=== PATIENT | male | born 1980 | race African-American/Black ===

== ENCOUNTER 2017-11-22 10:46 | Emergency (ER) | payer SELFPAY ==
[~2017-11-22] VITALS: Ht 177.8 cm; Wt 104.0 kg
[2017-11-22 11:07] VITALS: BP 172/100
== END 2017-11-22 16:18 | disposition left against medical advice (07) ==
LOC: ER 12:16
DX: J02.9 Acute pharyngitis, unspecified (principal); Z53.21 Procedure and treatment not carried out due to patient leaving prior to being seen by health care provider

== ENCOUNTER 2022-03-01 23:49 | Emergency (ER) | payer OTHER, MEDICAID ==
[~2022-03-01] VITALS: Ht 177.8 cm; Wt 111.0 kg
[2022-03-02 02:32] VITALS: BP 187/110
[2022-03-02 02:42] LABS: BASOPHILS % 0.4 % (0.0-2.0); EOSINOPHILS % 0.8 % (0.0-5.0); HEMATOCRIT. 45.7 % (42.0-52.0); HEMOGLOBIN. 15.8 g/dL (14.0-18.0); LYMPHOCYTES % 21.5 % (20.0-50.0); MEAN CORPUSCULAR HEMOGLOBIN 30.4 pg (28.0-32.0); MEAN CORPUSCULAR VOLUME 87.9 fL (80.0-94.0); MONOCYTES % 5.5 % (2.0-8.0); NEUTROPHILS % 71.8 % (40.0-76.0); PLATELET 274 x1000/uL (130-400); RED CELL DISTRIBUTION WIDTH 14.5 % (11.6-14.6)
[2022-03-02 02:47] LABS: CHLORIDE 105 mEq/L (98-107)
[2022-03-02] MEDS ORDERED: HYDR25TA MT (03:31)
== END 2022-03-02 03:57 | disposition home or self-care (01) ==
LOC: ER 23:49
DX: I10 Essential (primary) hypertension (principal); R00.2 Palpitations; F41.9 Anxiety disorder, unspecified
CPT/HCPCS: 36415; 80048; 84443; 85025; 93005; 99283